=== PATIENT | female | born 1975 | race Caucasian/White ===

== ENCOUNTER 2024-08-11 15:21 | Emergency (ER) | payer OTHER, SELFPAY ==
[2024-08-11 15:24] VITALS: BMI 24.3
[2024-08-11 15:32] VITALS: BP 129/82; PULSE 63; RESP 16; TEMP 36.8; O2SAT 100
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
--- NOTE | 2024-08-11 22:03 | PC.NURSE ---
STAFF CALLED PATIENT IN LOBBY AND OUTSIDE, NO ANSWER RECEIVED.
--- NOTE | 2024-08-11 22:19 | PC.NURSE ---
CALLED PATIENT IN LOBBY AND OUTSIDE, NO ANSWER RECEIVED.
--- NOTE | 2024-08-11 23:28 | PC.NURSE ---
CALLED PATIENT IN LOBBY AND OUTSIDE, NO ANSWER RECEIVED.
== END 2024-08-11 23:29 | disposition left against medical advice (07) ==
PROVIDERS: Emergency Provider Emergency Medicine
DX: R42 Dizziness and giddiness (principal); R51.9 Headache, unspecified; Z53.29 Procedure and treatment not carried out because of patient's decision for other reasons
CPT/HCPCS: 99281